=== PATIENT | male | born 1945 | race Caucasian/White ===

== ENCOUNTER 2017-12-29 02:59 | Emergency (ER) | payer MEDICARE, OTHER ==
[2017-12-29 03:22] LABS: #Basophils 0.1 thou/uL (0.0-0.2); #Eosinphils 0.2 thou/uL (0.0-0.7); Hemoglobin 14.5 g/dL (14.0-18.0); Mean Platelet Volume 7.6 fL (7.4-10.4)
[2017-12-29 03:36] LABS: #Lymphocytes 1.7 thou/uL (1.20-3.40); #Monocytes 0.9 thou/uL (0.11-0.59); #Neutrophils 5.2 thou/uL (1.40-6.50); %Basophils 1.1 % (0.0-1.0); %Eosinophils 2.5 % (0.0-10.0); %Lymphocytes 20.4 % (21.0-51.0); %Monocytes 11.4 % (0.0-10.0); %Neutrophils 64.7 % (42.0-75.0); Mean Corpuscular HGB CONC 33.3 g/dL (32.0-36.0); Mean Corpuscular Hemoglobin 31.7 pg (27.0-31.0); Mean Corpuscular Volume 95.3 fl (80.0-94.0); Platelet Count 230 thou/uL (130-400); RBC Distribution Width 12.1 % (11.5-14.5); Red Blood Cell (RBC) Count 4.58 mill/uL (4.70-6.10); White Blood Cell (WBC) Count 8.1 thou/uL (4.8-10.8)
[2017-12-29] MEDS ORDERED: Nitroglycerin 0.4 MG TAB (25 Tab Bottle) ONE (03:38)
[2017-12-29 03:43] LABS: ALT (SGPT) 12 U/L (8-55); AST (SGOT) 17 U/L (5-34); Alkaline Phosphatase 80 U/L (40-150); Anion Gap 12 mmol/L (10-20); BUN (Urea Nitrogen) 16 mg/dL (8.4-25.7); Bilirubin, Total 0.3 mg/dL (0.2-1.2); Calc. Creatinine Clearance 0 mL/min (70-130); Calcium 9.2 mg/dL (7.8-10.44); Carbon Dioxide 29 mmol/L (23-31); Chloride 104 mmol/L (98-107); Estimated GFR-MDRD Greater than 90; Globulin 2.9 g/dL (2.4-3.5); Glucose 115 mg/dL (83-110); Potassium 3.9 mmol/L (3.5-5.1); Protein, Total 6.9 g/dL (5.8-8.1); Sodium 141 mmol/L (136-145)
[2017-12-29 03:46] LABS: CKMB 2.5 ng/mL (0-6.6); Troponin I Less than 0.010 ng/mL (< 0.028)
[2017-12-29 04:48] LABS: Magnesium 2.3 mg/dL (1.6-2.6)
--- NOTE | 2017-12-29 08:17 | RAD ---
ONE VIEW CHEST: HISTORY: Chest pain. COMPARISON: 01/16/2010 FINDINGS: Normal cardiac silhouette. Pulmonary vessels and hilum are normal. Costophrenic angles are clear. No masses or consolidation. No pneumothorax or osseous abnormalities. IMPRESSION: No acute cardiopulmonary process. POS: [facility]
--- NOTE | 2017-12-29 09:19 | CT ---
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 States he took 2 full strength aspir in with no resolution of symptoms. Reports heavy smoking history but quit 10+ years ago. Denies history of mi or CVA. States mother had mi in her 60s. States he has been traveling across [place] recently for work. TECHNIQUE: Axial computed tomographic angiography images of the chest with intravenous contrast using pulmonary embolism protocol. MIP reconstructed images were created and reviewed. COMPARISON: No relevant prior studies available. FINDINGS: Pulmonary arteries: Unremarkable. No pulmonary embolism. Aorta: No acute findings. No thoracic aortic aneurysm. Lungs: Unremarkable. No mass. No consolidation. Pleural space: Unremarkable. No significant effusion. No pneumothorax. Heart: Unremarkable. No cardiomegaly. No significant pericardial effusion. No evidence of RV dysfunct ion. Mediastinum: Esophagus is unremarkable. Bones/joints: No acute fracture. No dislocation. Soft tissues: Unremarkable. Lymph nodes: Unremarkable. No enlarged lymph nodes. IMPRESSION: No acute findings. Thank you for allowing us to participate in the care of your patient. Dictated and Authenticated by: Mark Dunham MD 12/29/2017 4:49 AM Central Time ([place] & [place]) FINAL REPORT CT ANGIOGRAM OF THE CHEST: History: Dyspnea. Comparison: None. Technique: CT angiogram of the chest was performed in the axial plane. Bilateral oblique 3D formatted images are submitted for interpretation. FINDINGS: This report is in agreement with the preliminary report by [facility]. No evidence of pulmonary artery embol us to the level of the segmental arteries. POS: [facility]
== END 2017-12-29 05:33 | disposition home or self-care (01) ==
LOC: ERS 02:59
DX: R07.89 Other chest pain (principal); I10 Essential (primary) hypertension; E78.5 Hyperlipidemia, unspecified; Z87.891 Personal history of nicotine dependence; Z79.899 Other long term (current) drug therapy
CPT/HCPCS: 71045; 71275; 80053; 82553; 83690; 83735; 83880; 84484; 85025; 85379; 93005; 94640; 96360; J7620

== ENCOUNTER 2019-01-24 14:55 | Emergency (ER) | payer MEDICARE, OTHER ==
--- NOTE | 2019-01-24 15:40 | RAD ---
Chest 2 views HISTORY: Cough. COMPARISON: 12/29/2017. FINDINGS: Cardiac silhouette and pulmonary vasculature are unremarkable. Lungs remain hyperinflated. Mediastinum is midline. Calcific prominence at the left first costomanubrial junction is similar in appearance to previous exams. There is mild linear atelectasis at the left lateral lung base. No pleural fluid or pneumothorax. No lobar consolidation. IMPRESSION: Mild linear atelectasis left lateral lung base. No lobar consolidation. Pulmonary hyperinflation and other chronic findings are stable.
[2019-01-24 15:59] LABS: #Eosinphils 0.1 thou/uL (0.0-0.7); #Lymphocytes 1.3 thou/uL (1.20-3.40); #Monocytes 1.3 thou/uL (0.11-0.59); #Neutrophils 6.2 thou/uL (1.40-6.50); %Basophils 0.5 % (0.0-1.0); %Eosinophils 1.4 % (0.0-10.0); %Lymphocytes 14.8 % (21.0-51.0); %Monocytes 14.3 % (0.0-10.0); Hemoglobin 14.4 g/dL (14.0-18.0); Mean Corpuscular HGB CONC 32.5 g/dL (32.0-36.0); Mean Corpuscular Volume 95.3 fL (78.0-98.0); Platelet Count 236 thou/uL (130-400); RBC Distribution Width 12.1 % (11.5-14.5); Red Blood Cell (RBC) Count 4.66 mill/uL (4.70-6.10); White Blood Cell (WBC) Count 8.9 thou/uL (4.8-10.8)
[2019-01-24 16:26] LABS: ALT (SGPT) 10 U/L (8-55); AST (SGOT) 14 U/L (5-34); Albumin 4.2 g/dL (3.4-4.8); Alkaline Phosphatase 82 U/L (40-150); Anion Gap 12 mmol/L (10-20); BUN (Urea Nitrogen) 11 mg/dL (8.4-25.7); Bilirubin, Total 0.7 mg/dL (0.2-1.2); CK (CPK) 58 U/L (30-200); Calc. Creatinine Clearance 0 mL/min (70-130); Calcium 9.3 mg/dL (7.8-10.44); Carbon Dioxide 31 mmol/L (23-31); Chloride 100 mmol/L (98-107); Estimated GFR-MDRD 90; Globulin 2.6 g/dL (2.4-3.5); Glucose 110 mg/dL (83-110); Lipase 10 U/L (8-78); Potassium 4.1 mmol/L (3.5-5.1); Protein, Total 6.8 g/dL (5.8-8.1); Sodium 139 mmol/L (136-145)
[2019-01-24 17:37] LABS: Bilirubin Negative (Negative); Blood, Urine Negative (Negative); Clarity CLEAR (Clear); Glucose, Urine (Dipstick) Negative (Negative); Leukocyte Negative (Negative); Nitrite Negative (Negative); Protein, Urine (Dipstick) Trace mg/dL (Neg-Trace); Specific Gravity, Urine 1.019 (1.002-1.036); pH, Urine 6.5 (5.0-9.0)
== END 2019-01-24 17:58 | disposition home or self-care (01) ==
LOC: ERS 14:55
DX: M54.6 Pain in thoracic spine (principal); I10 Essential (primary) hypertension; E78.00 Pure hypercholesterolemia, unspecified; Z87.891 Personal history of nicotine dependence; Z79.51 Long term (current) use of inhaled steroids; Z79.899 Other long term (current) drug therapy
CPT/HCPCS: 36415; 71046; 80053; 81003; 82550; 83690; 84484; 85025; 93005; 94760

== ENCOUNTER 2019-05-05 13:01 | Emergency (ER) | payer MEDICARE, OTHER ==
[2019-05-05 13:40] LABS: Bacteria/HPF 4+ HPF (None Seen); Bilirubin Negative (Negative); Blood, Urine 1+ (Negative); Clarity Turbid (Clear); Glucose, Urine (Dipstick) Normal (Negative); Leukocyte 500 Leu/uL (Negative); Nitrite 2+ (Negative); Protein, Urine (Dipstick) 30 mg/dL (Neg-Trace); Squamous Epithelial None Seen HPF (0-3); Urobilinogen 6 mg/dL (Less than 2); WBC/HPF Greater than 50 HPF (0-3)
[2019-05-05 13:43] LABS: Hemoglobin 13.6 g/dL (14.0-18.0); Mean Corpuscular Volume 94.2 fL (78.0-98.0); Mean Platelet Volume 7.5 fL (7.4-10.4); Platelet Count 204 thou/uL (130-400); RBC Distribution Width 12.5 % (11.5-14.5); Red Blood Cell (RBC) Count 4.27 mill/uL (4.70-6.10); White Blood Cell (WBC) Count 5.9 thou/uL (4.8-10.8)
[2019-05-05 14:00] LABS: ALT (SGPT) 12 U/L (8-55); AST (SGOT) 12 U/L (5-34); Albumin 3.8 g/dL (3.4-4.8); Alkaline Phosphatase 68 U/L (40-150); Anion Gap 11 mmol/L (10-20); BUN (Urea Nitrogen) 15 mg/dL (8.4-25.7); Bilirubin, Total 0.4 mg/dL (0.2-1.2); Calc. Creatinine Clearance 0 mL/min (70-130); Carbon Dioxide 26 mmol/L (23-31); Chloride 102 mmol/L (98-107); Estimated GFR-MDRD Greater than 90; Globulin 2.8 g/dL (2.4-3.5); Glucose 117 mg/dL (83-110); Potassium 3.6 mmol/L (3.5-5.1); Protein, Total 6.6 g/dL (5.8-8.1); Sodium 135 mmol/L (136-145)
[2019-05-05 14:05] LABS: Band 13 % (5-11); Eosinophils 4 % (0-10); Lymphocytes 20 % (21-51); MDiff Complete? YES; Monocytes 12 % (0-10); Neutrophil 49 % (42-75); Platelet Morphology Comment Appears Adequate; RBC Morphology Normal
== END 2019-05-05 14:50 | disposition home or self-care (01) ==
LOC: ERS 13:01
DX: N30.00 Acute cystitis without hematuria (principal); I10 Essential (primary) hypertension; E78.00 Pure hypercholesterolemia, unspecified; Z87.891 Personal history of nicotine dependence; Z79.899 Other long term (current) drug therapy
CPT/HCPCS: 36415; 80053; 81003; 81015; 85025; 87077; 87086; 87186; 99283

== ENCOUNTER 2019-08-08 11:21 | Emergency (ER) | payer MEDICARE, OTHER ==
[2019-08-08] MEDS ORDERED: Adacel (T-DAP) 0.5 ML SYRINGE ONE (12:21)
[2019-08-08] MEDS ORDERED: Lidocaine 1% PF 5 ML VIAL ONE (12:21)
[2019-08-08] MEDS ORDERED: Triple Antibiotic Oint 1 GM Packet ONE (13:23)
== END 2019-08-08 13:40 | disposition home or self-care (01) ==
LOC: ERS 11:21
DX: S61.012A Laceration without foreign body of left thumb without damage to nail, initial encounter (principal); E78.5 Hyperlipidemia, unspecified; E78.00 Pure hypercholesterolemia, unspecified; I10 Essential (primary) hypertension; Z87.891 Personal history of nicotine dependence; Z23 Encounter for immunization; Z79.899 Other long term (current) drug therapy; W26.0XXA Contact with knife, initial encounter
CPT/HCPCS: 12001; 90471; 90715; J2001

== ENCOUNTER 2019-08-15 11:14 | Emergency (ER) | payer MEDICARE, OTHER | END 2019-08-15 11:50 | disposition home or self-care (01) | LOC: ERS 11:14 | DX: S61.012D Laceration without foreign body of left thumb without damage to nail, subsequent encounter (principal); E78.5 Hyperlipidemia, unspecified; E78.00 Pure hypercholesterolemia, unspecified; I10 Essential (primary) hypertension; Z87.891 Personal history of nicotine dependence; W26.0XXD Contact with knife, subsequent encounter ==

== ENCOUNTER 2019-08-16 10:59 | Emergency (ER) | payer MEDICARE, OTHER | END 2019-08-16 12:35 | disposition home or self-care (01) | LOC: ERS 10:59 | DX: S61.012D Laceration without foreign body of left thumb without damage to nail, subsequent encounter (principal); I10 Essential (primary) hypertension; E78.5 Hyperlipidemia, unspecified; E78.00 Pure hypercholesterolemia, unspecified; Z87.891 Personal history of nicotine dependence ==

== ENCOUNTER 2020-01-01 11:10 | Emergency (ER) | payer MEDICARE, OTHER ==
[2020-01-01] MEDS ORDERED: Acetaminophen 325 MG TAB ONE (12:14)
[2020-01-01 12:16] LABS: Hemoglobin 14.1 g/dL (14.0-18.0); Mean Corpuscular HGB CONC 33.5 g/dL (32.0-36.0); Mean Corpuscular Hemoglobin 31.4 pg (27.0-31.0); Mean Corpuscular Volume 93.8 fL (78.0-98.0); Mean Platelet Volume 7.8 fL (7.4-10.4); Platelet Count 218 thou/uL (130-400); RBC Distribution Width 12.6 % (11.5-14.5); White Blood Cell (WBC) Count 5.2 thou/uL (4.8-10.8)
[2020-01-01 12:32] LABS: ALT (SGPT) 39 U/L (8-55); AST (SGOT) 45 U/L (5-34); Albumin 3.7 g/dL (3.4-4.8); Alkaline Phosphatase 61 U/L (40-110); Anion Gap 14 mmol/L (10-20); BUN (Urea Nitrogen) 13 mg/dL (8.4-25.7); Bilirubin, Total 0.6 mg/dL (0.2-1.2); Calc. Creatinine Clearance 0 mL/min (70-130); Calcium 8.5 mg/dL (7.8-10.44); Carbon Dioxide 26 mmol/L (23-31); Chloride 100 mmol/L (98-107); Estimated GFR-MDRD Greater than 90; Globulin 2.9 g/dL (2.4-3.5); Glucose 119 mg/dL (83-110); Potassium 3.6 mmol/L (3.5-5.1); Protein, Total 6.6 g/dL (5.8-8.1); Sodium 136 mmol/L (136-145)
[2020-01-01 12:37] LABS: Band 19 % (5-11); Lymphocytes 21 % (21-51); MDiff Complete? YES; Monocytes 6 % (0-10); Myelocyte 1 % (0-0); Neutrophil 53 % (42-75); RBC Morphology Normal
--- NOTE | 2020-01-01 12:49 | RAD ---
XR Chest 1 View Portable HISTORY: Cough, difficulty breathing, worsening symptoms,:Covid 19 Positive COMPARISON: 12/29/2017 FINDINGS: The heart size is at upper limits of normal. The aorta is tortuous. The lungs are well expa nded without focal areas of consolidation, pneumothorax or pleural effusions. IMPRESSION: No radiographic evidence of acute cardiopulmonary process.
[2020-01-01 14:14] LABS: Bilirubin Moderate (Negative); Blood, Urine Negative (Negative); Clarity Clear (Clear); Glucose, Urine (Dipstick) Negative (Negative); Leukocyte Negative (Negative); Nitrite Negative (Negative); Protein, Urine (Dipstick) 100 mg/dL (Neg-Trace); Urobilinogen > or = 8.0 mg/dL (Less than 2)
== END 2020-01-01 14:03 | disposition home or self-care (01) ==
LOC: ERS 11:10
DX: B97.29 Other coronavirus as the cause of diseases classified elsewhere (principal); E78.5 Hyperlipidemia, unspecified; E78.00 Pure hypercholesterolemia, unspecified; I10 Essential (primary) hypertension; Z87.891 Personal history of nicotine dependence
CPT/HCPCS: 71045; 80053; 81003; 81015; 83605; 85025; 87040; 87086

== ENCOUNTER 2020-11-18 13:20 | Outpatient (CLI) | payer MEDICARE, OTHER ==
[2020-11-18 13:58] LABS: Estimated GFR-MDRD - POC Greater than 90
[2020-11-18] MEDS ORDERED: Iopamidol 370 76% 100 ML VIAL ONE (14:24)
--- NOTE | 2020-11-18 14:27 | CT ---
CTA Angio Abd Pelvis W WO Con History: Aortic aneurysm Comparison: Ultrasound abdominal aorta 2 days prior Findings: CT of the abdomen and pelvis was performed first before the intravenous administration of contrast and subsequently after the intravenous administration of contrast. 3-D rendering provided. On the noncontrast portion of the exam the lung bases are clear. No pericardial effusion. No intramural hematoma. No penetrating atherosclerotic ulcer. No nephroureterolithiasis or hydrourete ronephrosis. The distal thoracic aorta is normal in caliber. 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 The distal branches of the celiac artery are patent. Superior mesenteric artery is patent. Inferior mesenteric artery is patent. Single left renal artery is patent. 2 separate right renal arteries are patent. Symmetric enhancement of both kidneys. Infrarenal abdominal aortic aneurysm measures up to 4.9 cm in dimension with a length of 7.8 cm. Dila tation of the right common iliac artery measures 22 mm. Dilatation of the left common iliac artery measures 23 mm. There is also mild dilatation of the internal and external iliac arteries. Right femoral artery is patent. 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 Extensive diverticular disease sigmoid colon without active inflammation. No evidence for bowel obstr uction. The appendix is visualized and is normal. No retroperitoneal periaortic adenopathy. Pancreas is royce l. No intrahepatic or extrahepatic biliary dilatation. No hepatic enhancing mass. Small exophytic hypodensity interpolar right kidney likely a cyst measures less than 1 cm. No hydrone phrosis. Endophytic left renal hypodensity measures 1.6 cm and 12 Hounsfield units also likely a cyst. No hydroureteronephrosis. Urinary bladder is unremarkable. Moderate degenerative disc space disease a nd facet arthrosis as well as intraspinous narrowing lower lumbar spine. Mild fascial enhancement calcifications just deep to the left rectus femoris muscle and along the lef t hamstring musculature. Impression: 1. No significant enlargement of the infrarenal abdominal aortic aneurysm as described measuring up t o 4.9 cm in dimension with a length of 7.8 cm. 2. 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 3. Patent superior mesenteric artery and inferior mesenteric artery. 4. 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 Transcribed Date/Time: 11/18/2020 2:41 PM
== END 2020-11-18 13:21 | disposition home or self-care (01) ==
LOC: CT 13:20
PROVIDERS: ATTEND Thoracic Surgery (Cardiothoracic Vascular Surgery)
DX: I71.4 Abdominal aortic aneurysm, without rupture (principal); I72.8 Aneurysm of other specified arteries; I77.4 Celiac artery compression syndrome
CPT/HCPCS: 74174; 82565; Q9967

== ENCOUNTER 2021-06-19 11:58 | Emergency (ER) | payer MEDICARE, OTHER ==
[2021-06-19] MEDS ORDERED: Iopamidol-370 76% 500 ML 1 ML ONE (12:33)
[2021-06-19 13:02] LABS: #Eosinphils 0.1 thou/uL (0.0-0.7); #Lymphocytes 1.1 thou/uL (1.20-3.40); #Monocytes 0.6 thou/uL (0.11-0.59); %Basophils 0.8 % (0.0-1.0); %Eosinophils 1.6 % (0.0-10.0); %Lymphocytes 19.1 % (21.0-51.0); %Monocytes 10.6 % (0.0-10.0); %Neutrophils 67.9 % (42.0-75.0); Hemoglobin 15.2 g/dL (14.0-18.0); Mean Corpuscular HGB CONC 33.4 g/dL (32.0-36.0); Mean Corpuscular Volume 95.9 fL (78.0-98.0); Mean Platelet Volume 7.5 fL (7.4-10.4); Platelet Count 219 thou/uL (130-400); RBC Distribution Width 12.5 % (11.5-14.5); Red Blood Cell (RBC) Count 4.75 mill/uL (4.70-6.10); White Blood Cell (WBC) Count 5.9 thou/uL (4.8-10.8)
[2021-06-19 13:22] LABS: ALT (SGPT) 12 U/L (8-55); AST (SGOT) 16 U/L (5-34); Albumin 3.9 g/dL (3.4-4.8); Alkaline Phosphatase 73 U/L (40-110); Anion Gap 8 mmol/L (10-20); BUN (Urea Nitrogen) 14 mg/dL (8.4-25.7); Bilirubin, Total 0.6 mg/dL (0.2-1.2); Calc. Creatinine Clearance 0 mL/min (70-130); Calcium 9.3 mg/dL (7.8-10.44); Carbon Dioxide 31 mmol/L (23-31); Chloride 104 mmol/L (98-107); Globulin 2.6 g/dL (2.4-3.5); Glucose 106 mg/dL (83-110); Potassium 4.4 mmol/L (3.5-5.1); Protein, Total 6.5 g/dL (5.8-8.1); Sodium 139 mmol/L (136-145)
[2021-06-19 16:16] LABS: Troponin I Less than 0.010 ng/mL (< 0.028)
== END 2021-06-19 17:12 | disposition home or self-care (01) ==
LOC: ERS 11:58
DX: I71.4 Abdominal aortic aneurysm, without rupture (principal); Z87.891 Personal history of nicotine dependence
CPT/HCPCS: 36415; 71045; 71275; 74174; 80053; 84484; 85025; 85379; 93005; Q9967

== ENCOUNTER 2024-02-16 12:51 | Outpatient (CLI) | payer MEDICARE, OTHER ==
[2024-02-16] MEDS ORDERED: Magnevist 469MG/ML 20 ML VIAL ONE ×2 (13:22)
== END 2024-02-16 12:52 | disposition home or self-care (01) ==
LOC: MRI 12:51
PROVIDERS: ATTEND Family Medicine
DX: R51.9 Headache, unspecified (principal)
CPT/HCPCS: 36415; 70546; 70553; 80048; 85025; A9579

== ENCOUNTER 2024-11-16 12:26 | Emergency (ER) | payer MEDICARE, OTHER ==
[2024-11-16] MEDS ORDERED: Lidocaine 1% PF 5 ML VIAL ONE (14:03)
[2024-11-16] MEDS ORDERED: Bacitracin 1 PK ONE (14:03)
== END 2024-11-16 14:36 | disposition home or self-care (01) ==
LOC: ERS 12:26
DX: S61.213A Laceration without foreign body of left middle finger without damage to nail, initial encounter (principal); J44.9 Chronic obstructive pulmonary disease, unspecified; I10 Essential (primary) hypertension; Z87.891 Personal history of nicotine dependence; W01.0XXA Fall on same level from slipping, tripping and stumbling without subsequent striking against object, initial encounter
CPT/HCPCS: 12001; 99282